=== PATIENT | male | born 1955 ===

== ENCOUNTER 2024-12-27 08:34 | Outpatient (REF) | payer MEDICARE, SELFPAY ==
--- OUTSIDE RECORDS SUMMARY | 2024-12-25 14:00 | XMS_ITS | Encounter Summary ---
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 Role Phone Clarke Silveira CNP Primary Care Provider [phone] Reason for Referral * Imaging (Routine) - Authorized Specialty Diagnoses / Procedures Referred By Rudy t Referred To Contact Radiology Diagnoses Sensation of swollen throat Procedures US Head Neck Soft Tissue Clarke Silveira CNP [address] [place] [address] Phone: tel: fax: [facility] [address], [address] [place] [address] Phone: tel: fax: Referral ID Status Reason Start Date Expiration Date V isits Requested Visits Authorized [id number] Authorized 12/26/2024 12/26/2025 1 1 * Consultation (Routine) - Pending Review Specialty Diagnoses / Procedures Referred By Rudy t Referred To Contact Gastroenterology Diagnoses Chronic bilateral low back pain with bilateral sciatica Clarke Silveira CNP [address] [place] [address] Phone: tel: fax: Referral ID Status Reason Start Date Expiration Date Visits Requested Visits Authorized [id number] Pending Review Specialty Services Required 12/25/2024 12/25/2025 1 1 * Consultation (Routine) - Pending Review Specialty Diagnoses / Procedures Referred By Contac t Referred To Contact Podiatry Diagnoses Neuropathy Clarke Silveira CNP [address] [place] [address] Phone: tel: fax: Referral ID Status Reason Start Date Expiration Date Visits Requested Visits Authorized [id number] Pending Review Specialty Services Required 12/25/2024 12/25/2025 1 1 Encounter Details Date Type Department Care Team ([facility] st Contact Info) Description 12/25/2024 2:00 PM EDT Office Visit [facility] [address] [place] [address] Clarke Silveira CNP [address] [place] [address] Encounter for physical examination (Primary Dx); Neuropathy; Type 2 diabetes mellitus with other specified complication, without long-term current use of insulin (HCC); Chronic neck pain; Chronic bilateral low back pain with bilateral sciatica; Encounter for immunization; Primary hypertension; Sensation of swollen throat; Hypothyroidism, unspecified type Social History Tobacco Use Types Packs/Day Years Used Date Smoking Tobacco: Former Cigarettes Passive Smoke Exposure: Never Smokeless Tobacco: Never Alcohol Use Standard Drinks/Week Comments Not Currently 0 (1 standard drink = 0.6 oz pur e alcohol) Depression Answer Date Recorded Patient Health Questionnaire-9 Score 9 12/25/2024 Patient Health Questionnaire-9 Score 9 12/25/2024 Last PHQ-9: Questionnaire Data Not on file 1 Housing Stability Answer Date Recorded What is your housing situation today? I have holli perea 12/18/[address] you li ve. Do you have problems with any of the following? None of the above 12/18/2024 Food Insecurity Answer Date Recorded Within the past 12 months, y ou worried that your food would run out before you got money to buy more: Never True 12/18/2024 Within the past 12 months,th e food you bought just didn't last and you didn't have enough money to get more: Never True Transportation Answer Date Recorded In the past 12 months, has l ack of transportation kept you from medical appts, meetings, work or from getting things needed for daily living? No 12/18/2024 Utilities Answer Date Recorded In the past 12 months, has t he electric, gas, oil or water company threatened to shut off services in your home? No 12/18/2024 Depression Answer Date Recorded Patient Health Questionnaire-2 Score 2 12/25/2024 Internet Access Answer Date Recorded Internet Access Q1 Yes 12/18/2024 Internet Access Q2 Not on file 12/18/2024 Sex and Gender Information Value Date Recorded Sex Assigned at Male 12/25/2024 2:06 PM EDT Legal Sex Male 10:10 AM EDT Gender Identity Male 12/25/2024 2:06 PM EDT Sexual Orientation Straight 12/25/2024 2: 06 PM EDT documented as of this encounter Last Filed Vital Signs Vital Sign Reading Time Taken Comments Blood Pressure 158/88 12/25/2024 2:23 PM EDT Pulse 76 12/25/2024 2:23 PM EDT Temperature 36.6 C (97.9 F) 12/25/2024 2:23 PM EDT Respiratory Rate 12 12/25/2024 2:23 PM EDT Oxygen Saturation 97% 12/25/2024 2:23 PM EDT Inhaled Oxygen Concentration - - Weight 89.4 kg (197 lb) 12/25/2024 2:23 PM EDT Height 169.5 cm (5' 6.75 ) 12/25/2024 2:23 PM ED T Body Mass Index 31.09 12/25/2024 2:23 PM EDT documented in this encounter Functional Status * Over the past 2 weeks, how often have you been bothered by any of the following problems? Question Answer Date of Assessment Author Patient Health Questionnaire -2 Score 2 12/25/2024 2:58 PM EDT Anna Ramirez MA * Little interest or pleasure in doing things Answer Date of Assessment Author Several days 12/25/2024 2:58 PM EDT Regine Ramirez MA * Feeling down, depressed, or hopeless Answer Date of Assessment Author Several days 12/25/2024 2:58 PM EDT Regine Ramirez MA * Trouble falling or staying asleep, or sleeping too much Answer Date of Assessment Author More than half the days 12/25/2024 2:58 PM EDT Regine Omalley MA * Feeling tired or having little energy Answer Date of Assessment Author Nearly every day 12/25/2024 2:58 PM EDT Regine Hernandez MA * Poor appetite or overeating Answer Date of Assessment Author Not at all 12/25/2024 2:58 PM EDT Regine Ramirez MA * Feeling bad about yourself - or that you are a failure or have let yourself or your family down Answer Date of Assessment Author Not at all 12/25/2024 2:58 PM EDT Regine Ramirez MA * Trouble concentrating on things, such as reading the newspaper or watching television Answer Date of Assessment Author Several days 12/25/2024 2:58 PM EDT Regine Ramirez MA * Moving or speaking so slowly that other people could have noticed? Or the opposite - being so fidgety or restless that you have been moving around a lot more than usual. Answer Date of Assessment Author Several days 12/25/2024 2:58 PM EDT Regine Ramirez MA * Thoughts that you would be better off or hurting yourself in some way Answer Date of Assessment Author Not at all 12/25/2024 2:58 PM EDT Regine Ramirez MA * Patient Health Questionnaire-9 Score Answer Date of Assessment Author 9 12/25/2024 2:58 PM EDT Regine Ramirez MA * How difficult have these problems made it for you to do your work, take care of things at home, or get along with other people? Answer Date of Assessment Author Somewhat difficult 12/25/2024 2:58 PM EDT Regine Schmid MA documented as of this encounter Progress Notes * Clarke Silveira CNP - 12/25/2024 2:00 PM EDT Subjective: Anastacio Quiles is a 69 y.o. male with PMH of hypertension, CKD and renal stones, T2DM, Hypothyroidism, Diverticulosis, and depression who presents to the office for a new patient visit. Previous PCP unknown. Interim history: Pt follows with [facility] for CKD. Current concerns: Neuropathy: Reports severe pain in hands, feet, neck, back, and both legs, described as neuropathy and sciatica; pain worsens with walking and daily activity Pt reports history of neck injections forpain relief. Denies taking gabapentin or duloxetine due to unwanted side effects. Pt reports he is not interested in PT as he reports symptoms worsen and no improvement after previous sessions. Chronic back pain with sciatica, Elevated BP: pt currently takes metoprolol, declines taking losartan due to side effects, denies taking hydrochlorothiazide. Reporting sensation of throat obstruction and inability to clear throat for past 1.5 months; occasional trouble breathing during this period. He reports suspected cold or infection, but symptoms havepersisted. Health maintenance - Last diabetic foot exam performed 6-7 months ago; no recent follow-up due to insurance changes. - Last colon cancer screening in 2019 unsure of results - Upcoming routine eye exam scheduled for December 24, 2024. Problem List[1] Surgical History[2] Family History[3] Mental health: Patient Health Questionnaire-9 Score: 9 (12/25/2024 2:58 PM) Patient Health Questionnaire-2 Score: 2 (12/25/2024 2:58 PM) Thoughts that you would be better off or hurting yourself in some way: Not at all (12/25/2024 2:58 PM) Allergies[4] Review of Systems Vitals: 12/25/24 1423 BP: (!) 158/88 BP Location: Left arm Patient Position: Sitting BP Cuff Size: Adult Pulse: 76 Resp: 12 Temp: 97.9 ??F (36.6 ??C) TempSrc: Oral SpO2: 97% Weight: 197 lb (89.4 kg) Height: 5' 6.75 (1.695 m) Physical Exam Vitals reviewed. Constitutional: General: He is not in acute distress. Appearance: Normal appearance. He is not ill-appearing, toxic-appearing or diaphoretic. HENT: Head: Normocephalic and atraumatic. Mouth/Throat: Mouth: Mucous membranes are moist. Pharynx: Oropharynx is clear. No oropharyngeal exudate or posterior oropharyngeal erythema. Eyes: Extraocular Movements: Extraocular movements intact. Pupils: Pupils are equal, round, and reactive to light. Cardiovascular: Rate and Rhythm: Normal rate and regular rhythm. Pulses: Normal pulses. Heart sounds: Normal heart sounds. No murmur heard. No friction rub. No gallop. Pulmonary: Effort: Pulmonary effort is normal. No respiratory distress. Breath sounds: Normal breath sounds. No stridor. No wheezing, rhonchi or rales. Chest: Chest wall: No tenderness. Musculoskeletal: Cervical back: Neck supple. No tenderness. Right lower leg: No edema. Left lower leg: No edema. Lymphadenopathy: Cervical: No cervical adenopathy. Neurological: General: No focal deficit present. Mental Status: He is alert and oriented to person, place, and time. Mental status is at baseline. Psychiatric: Mood and Affect: Mood normal. Behavior: Behavior normal. Thought Content: Thought content normal. Judgment: Judgment normal. Assessment & Plan Encounter for physical examination 1. Anticipatory guidance discussed. Specific topics reviewed: drugs, ETOH, and tobacco, importance of regular dental care, importance of regular exercise, importance of varied diet, minimize junk food, and sex; STD and prevention as appropriate. 2. Age appropriate screenings discussed Orders: Lipid Panel, Standard; Future Albumin, Random Urine W/Creatinine; Future TSH W/Reflex to FT4; Future CBC auto differential; Future Comprehensive Metabolic Panel; Future Hepatitis C Antibody with Reflex to HCV, RNA, Quantitative, Real-Time PCR; Future Neuropathy - Refer to podiatry for comprehensive foot examination and management of neuropathy symptoms -considered medication for symptoms, however pt reluctant to pharm treatment due to side effects Orders: Referral to Podiatry; Future Type 2 diabetes mellitus with other specified complication, without long-term current use of insulin (HCC) Lab Results Component Value Date HGBA1C 6.7 (A) 12/25/2024 A1c at goal of <7 Maintenance BMP: ordered Microalbumin: ordered Foot Exam: ordered Eye Exam: scheduled Lipid panel: ordered Statin: yes ASA: no RAOUL/ARB: no, 2/2 AE Treatment Goals: A1c goal: <7% FBG goal: <130 2 hour post prandial goal: <180 Advised Low sugar and Low carb diet. Counseled regarding self-monitoring of blood glucose. Counseled re: potential co-morbidities including cardiovascular disease. Counseled re: potential co-morbidities include neuropathy and retinopathy. Counseled re: potential co-morbidities include nephropathy. Future consideration for glipizide discontinuation Orders: POCT A1c POCT glucose manually resulted Chronic neck pain - Prescribed acetaminophen (Tylenol) for pain management, to be taken as needed for symptomatic relief. - Prescribed topical analgesic gel for localized pain relief, to be applied to affected areas as needed. - Recommended consideration of physical therapy in the future if pain remains uncontrolled, despiteprevious negative experiences. Chronic bilateral low back pain with bilateral sciatica - Prescribed acetaminophen (Tylenol) for pain management, to be taken as needed for symptomatic relief. - Prescribed topical analgesic gel for localized pain relief, to be applied to affected areas as needed. - Recommended consideration of physical therapy in the future if pain remains uncontrolled, despiteprevious negative experiences. Orders: Referral to Gastroenterology; Future Encounter for immunization Orders: FLU VACCINE TRIVALENT HIGH DOSE [id number] (Fluzone) 65 yrs + Primary hypertension BP not at goal of <140/90 Plan is to have pt follow up for RN BP check in 2 weeks. If BP >130/ at this visit please add : amlodipine 5mg daily. Medication: Continue current antihypertensives: metoprolol Start/change dosage of: if still uncontrolled start amlodipine 5mg Monitor for side effects: dizziness, flushing, palpitations, LE edema Lifestyle Modifications: Low sodium DASH diet Regular aerobic exercise (>=150 min/week) Weight loss if BMI >25 Limit alcohol, avoid tobacco Follow-up: Recheck BP in office/home in ___2___ weeks Patient Education: Provided verbal/written education on BP goals and home monitoring Emphasized adherence to medication and follow-up Sensation of swollen throat Physical exam was benign, no foreign body observed on PE No cervical LAD Plan to order soft tissue US of throat Orders: US Head Neck Soft Tissue; Future Hypothyroidism, unspecified type Pt asymptomatic Pt adherent to medication Will obtain updated thyroid panel to monitor condition Current Medications[5] Immunization History Administered Date(s) Administered Influenza High-dose Quadrivalent Preservative Free 02/21/2022 Influenza Injectable Quadrivalant Preservative Free IIV4 MDCK 12/19/2019 Influenza Quadrivalent Adjuvanted 02/01/2023 Influenza, High Dose Seasonal, Preservative Free 12/31/2014, 11/10/2015, 12/25/2024 Influenza, IIV3, injectable 12/28/2009, 12/22/2010, 01/16/2012, 02/04/2013, 01/29/2016, 02/06/2017,02/12/2018, 12/19/2019, 02/24/2021, 02/21/2022 Influenza, seasonal, injectable, preservative free 02/24/2021 Pfizer Covid-19 Vaccine 12+ 03/17/2021 Pfizer Covid-19 Vaccine 12+ Bivalent 03/04/2022 Pneumococcal Polysaccharide PPSV23 01/26/2011 RSV Adjuvant 02/01/2023 Td (adult), unspecified 11/25/2010, 10/01/2021 Tdap 12/26/2018 Appointment Follow up in about 2 weeks (around 01/08/2025) for RN BP check then f/u with me in 3 months . 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 [3] No family history on file. [4] Allergies Allergen Reactions Aspirin Gabapentin Abdominal Pain GI Upset Lisinopril Angioedema and Swelling [5] Current Outpatient Medications Medication Sig Dispense Refill atorvastatin (Lipitor) 10 MG tablet Take 1 tablet by mouth Once per day. cetirizine (ZyrTEC) 10 MG tablet Take 10 mg by mouth. FreeStyle lancets TEST 2 TIMES DAILY DIRECTED FOR DIABETES TYPE 2 FREESTYLE LITE test strip USE DIRECTED TO TEST BLOOD SUGAR TWICE DAILY FOR TYPE 2 DAIBETES glucose blood test strip FREESTYLE LITE TEST STRIP, See Instructions, # 200 Unknown, 3 Refills, Maintenance, USE DIRECTED TO CHECK BLOOD SUGAR DOS VECES AL RAE. ICD-10: E11.9, 06/22/22 1:52:00 PM EDT, 168, cm, 03/04/22 14:21:00 EST, Height, 92.45, kg, 03/04/22 14:21:00 EST, Dry Weight Isopropyl Alcohol (Alcohol Wipes) 70 % misc See Instructions, # 1 box, Refills 3, Tot. Refills 3, Maintenance, Use as directed, DX: Type 2 DM, E11.9, 04/15/15 4:12:00 PM EST, Compound Januvia 50 MG tablet Take 50 mg by mouth Once per day. metFORMIN (Glucophage) 1000 MG tablet Take 1 tablet by mouth Once per day. acetaminophen (Tylenol Extra Strength) 500 MG tablet Take 1 tablet (500 mg) by mouth every 6 (six) hours if needed for mild pain or moderate pain for up to 10 days. 30 tablet 0 cholecalciferol VITAMIN D (Vitamin D-3) 50 MCG (2000 UT) tablet TOME 1 TABLETA POR V A ORAL TODOS LOS D Diclofenac Sodium 1 % gel Apply to affected areas daily for pain relief. 100 g 0 glipiZIDE XL (Glucotrol XL) 2.5 MG 24 hr tablet Take 1 tablet by mouth Once per day. levothyroxine (Synthroid, Levoxyl) 175 MCG tablet TOME ZOILA TABLETA POR V A ORAL TODOS LOS D ON EMPTY STOMACH metoprolol succinate XL (Toprol-XL) 50 MG 24 hr tablet TOME 1 TABLETA POR V A ORAL TODOS LOS D No current facility-administered medications for this visit. documented in this encounter Miscellaneous Notes * Assessment & Plan Note - Clarke Silveira CNP - 12/25/2024 2:00 PM EDT Associated Problem(s): Type 2 diabetes mellitus (HCC) Lab Results Component Value Date HGBA1C 6.7 (A) 12/25/2024 A1c at goal of <7 Maintenance BMP: ordered Microalbumin: ordered Foot Exam: ordered Eye Exam: scheduled Lipid panel: ordered Statin: yes ASA: no RAOUL/ARB: no, 2/2 AE Treatment Goals: A1c goal: <7% FBG goal: <130 2 hour post prandial goal: <180 Advised Low sugar and Low carb diet. Counseled regarding self-monitoring of blood glucose. Counseled re: potential co-morbidities including cardiovascular disease. Counseled re: potential co-morbidities include neuropathy and retinopathy. Counseled re: potential co-morbidities include nephropathy. Future consideration for glipizide discontinuation Orders: POCT A1c POCT glucose manually resulted * Assessment & Plan Note - Clarke Silveira CNP - 12/25/2024 2:00 PM EDT Associated Problem(s): Chronic neck pain - Prescribed acetaminophen (Tylenol) for pain management, to be taken as needed for symptomatic relief. - Prescribed topical analgesic gel for localized pain relief, to be applied to affected areas as needed. - Recommended consideration of physical therapy in the future if pain remains uncontrolled, despiteprevious negative experiences. * Assessment & Plan Note - Clarke Silveira CNP - 12/25/2024 2:00 PM EDT Associated Problem(s): Hypertension BP not at goal of <140/90 Plan is to have pt follow up for RN BP check in 2 weeks. If BP >130/ at this visit please add : amlodipine 5mg daily. Medication: Continue current antihypertensives: metoprolol Start/change dosage of: if still uncontrolled start amlodipine 5mg Monitor for side effects: dizziness, flushing, palpitations, LE edema Lifestyle Modifications: Low sodium DASH diet Regular aerobic exercise (>=150 min/week) Weight loss if BMI >25 Limit alcohol, avoid tobacco Follow-up: Recheck BP in office/home in ___2___ weeks Patient Education: Provided verbal/written education on BP goals and home monitoring Emphasized adherence to medication and follow-up * Assessment & Plan Note - Clarke Silveira CNP - 12/25/2024 2:00 PM EDT Associated Problem(s): Hypothyroidism Pt asymptomatic Pt adherent to medication Will obtain updated thyroid panel to monitor condition documented in this encounter Plan of Treatment Upcoming Encounters Date Type Department Care Team (Late st Contact Info) Description 01/08/2025 2:00 PM EDT Clinical Support [facility] [address] [place] [id number] Scheduled Orders Name Type Priority Associated Diagnoses Orde r Schedule Lipid Panel, Standard Lab Routine Encounter for physical examination Expected: 12/25/2024 (Approximate), Expires: 12/25/2025 Albumin, Random Urine W/Creatinine Lab Routine Encounter for physical examination Expected: 12/25/2024 (Approximate), Expires: 12/25/2025 TSH W/Reflex to FT4 Lab Routine Encounter for physical examination Expected: 12/25/2024 (Approximate), Expires: 12/25/2025 CBC auto differential Lab Routine Encounter for physical examination Expected: 12/25/2024 (Approximate), Expires: 12/25/2025 Comprehensive Metabolic Panel Lab Routine Encounter for physical examination Expected: 12/25/2024 (Approximate), Expires: 12/25/2025 Hepatitis C Antibody with Reflex to HCV, RNA, Quantitative, Real-Time PCR Lab Routine Encounter for physical examination Expected: 12/25/2024, Expires: 12/25/2025 US Head Neck Soft Tissue Imaging Routine Sensation of swollen throat Expected: 12/26/2024, Expires: 12/26/2025 Scheduled Referrals Name Type Priority Associated Diagnoses Order Schedule Referral to Podiatry Outpatient Referral Routine Neuropathy Expected: 12/25/2024 (Approximate), Expires: 12/25/2025 Referral to Gastroenterology Outpatient Referral Routine Chronic bilateral low back pain with bilateral sciatica Expected: 12/25/2024 (Approximate), Expires: 12/25/2025 documented as of this encounter Procedures Procedure Name Priority Date/Time Associated Diagnosis Comments POCT GLUCOSE Routine 12/25/2024 3:00 PM EDT Type 2 diabetes mellitus with other specified complication, without long-term current use of insulin (HCC) POCT GLYCATED HEMOGLOBIN, TOTAL Routine 12/25/2024 2:59 PM EDT Type 2 diabetes mellitus with other specified complication, without long-term current use of insulin (HCC) documented in this encounter Results * POCT glucose manually resulted (12/25/2024 3:00 PM EDT) Glucose Blood, POC 151 60 - 200 mg/dL QC Media Lot # Comment:[id number] Lot# Expiration Date Comment:03/15/2025 Blood Capillary blood specimen / Unknown 12/25/2024 3:00 PM EDT [facility] POINT OF CARE TEST ENTER/ EDIT ORDERABLES Final Result * (ABNORMAL) POCT A1c (12/25/2024 2:59 PM EDT) Hemoglobin A1C 6.7(A) 4.0 - 5.7 % [employer] Media Lot # Comment:[id number] Lot# Expiration Date Comment:07/01/2026 Blood 12/25/2024 2:59 PM EDT [facility] POINT OF CARE TEST ENTER/ EDIT ORDERABLES Final Result documented in this encounter Visit Diagnoses Diagnosis Encounter for physical examination- Primary Neuropathy Mononeuritis of unspecified site Type 2 diabetes mellitus with other specified complication, without long-term current use of insulin (HCC) Chronic neck pain Cervicalgia Chronic bilateral low back pain with bilateral sciatica Encounter for immunization Primary hypertension Unspecified essential hypertension Sensation of swollen throat Hypothyroidism, unspecified type documented in this encounter Additional Health Concerns Assessment Noted Time PHQ-9 Depression Total Score: 9 12/26/19 2:58 PM EDT documented as of this encounter 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
--- OUTSIDE RECORDS SUMMARY | 2024-12-27 08:57 | XMS_ITS | Encounter Summary ---
Author Organization [employer] Address [address] [facility] 7[address] [place] [address] Care Team Providers Care Milk Tester Name Role Phone Clarke Silveira CNP Primary Care Provider [phone] Reason for Visit * Reason Onset Date Comments chart prep 12/25/2024 Encounter Details Date Type Department Care Team ([facility] st Contact Info) Description 12/25/2024 Telephone [facility] MED & PEDS [address] [place] [address] LatashaJasbirTemple, [place] chart prep Social History Tobacco Use Types Packs/Day Years Used Date Smoking Tobacco: Former Cigarettes Passive Smoke Exposure: Never Depression Answer Date Recorded Patient Health Questionnaire-9 Score 9 12/25/2024 Patient Health Questionnaire-9 Score 9 12/25/2024 Last PHQ-9: Questionnaire Data Not on file 1 Housing Stability Answer Date Recorded What is your housing situation today? I have hollipreethi perea 12/18/[address] you [...] t he electric, gas, oil or water [employer] threatened to shut off services in your [...] PM EDT documented as of this encounter Miscellaneous Notes * Telephone Encounter - Richelle Mack MA - 12/25/2024 8:36 AM EDT Chart Prep Labs: not applicable Images: not applicable Referrals: not applicable Vaccines due: Covid, Flu, PCV20, and Zoster Screenings: colonoscopy Overdue care gaps: A1c, Glucose, SBIRT, PHQ-9, and Tobacco documented in this encounter Plan of Treatment Upcoming Encounters Date Type Department Care Team (Late st Contact Info) Description 01/08/2025 2:00 PM EDT Clinical Support [facility] MED & PEDS [address] [place] [address] documented as of this encounter Visit Diagnoses Not on filedocumented in this encounter Additional Health Concerns Assessment Noted Time PHQ-9 Depression Total Score: 9 12/26/19 2:58 PM EDT documented as of this encounter Care Teams Milk Tester Relationship Specialty Start Date End Date Clarke Silveira CNP [address] [place] [address] PCP - General Family Medicine 12/25/24 documented as of this encounter
--- OUTSIDE RECORDS SUMMARY | 2024-12-27 08:57 | XMS_ITS | Clinical Summary ---
Author Organization [employer] Address [address] [facility] 7t [place] [address] Care Team Providers Care Radiation Oncology Therapist Name Role Phone Clarke Silveira CNP Primary Care Provider [phone] Allergies Active Allergy Reactions Criticality Noted Date Comments Aspirin 09/04/2020 Gabapentin Abdominal Pain 12/25/2024 GI Upset Lisinopril Angioedema,Swelling 12/16/2021 Medications glipiZIDE XL (Glucotrol XL) 2.5 MG 24 hr tablet Take 1 tablet by mouth Once per day. Active FREESTYLE LITE test strip USE DIRECTED TO TEST BLOOD SUGAR TWICE DAILY FOR TYPE 2 DAIBETES 5 Active FreeStyle lancets TEST 2 TIMES DAILY DIRECTED FOR DIABETES TYPE 2 5 Active levothyroxine (Synthroid, Levoxyl) 175 MCG tablet TOME ZOILA TABLETA POR V A ORAL TODOS LOS D ON EMPTY STOMACH Active metFORMIN (Glucophage) 1000 MG tablet Take 1 tablet by mouth Once per day. 4 Active metoprolol succinate XL (Toprol-XL) 50 MG 24 hr tablet TOME 1 TABLETA POR V A ORAL TODOS LOS D Active Januvia 50 MG tablet Take 50 mg by mouth Once per day. 5 Active cholecalciferol VITAMIN D (Vitamin D-3) 50 MCG (1999 UT) tablet TOME 1 TABLETA POR V A ORAL TODOS LOS D Active atorvastatin (Lipitor) 10 MG tablet Take 1 tablet by mouth Once per day. 4 Active glucose blood test strip FREESTYLE LITE TEST STRIP, See Instructions, # 200 Unknown, 3 Refills, Maintenance, USE DIRECTED TO CHECK BLOOD SUGAR DOS VECES AL RAE. ICD-10: E11.9, 06/22/22 1:52:00 PM EDT, 168, cm, 03/04/22 14:21:00 EST, Height, 92.45, kg, 03/04/22 14:21:00 EST, Dry Weight 2 Active cetirizine (ZyrTEC) 10 MG tablet Take 10 mg by mouth. 4 Active Isopropyl Alcohol (Alcohol Wipes) 70 % misc See Instructions, # 1 box, Refills 3, Tot. Refills 3, Maintenance, Use as directed, DX: Type 2 DM, E11.9, 04/15/15 4:12:00 PM EST, Compound 6 Active acetaminophen (Tylenol Extra Strength) 500 MG tablet Take 1 tablet (500 mg) by mouth every 6 (six) hours if needed for mild pain or moderate pain for up to 10 days. 30 tablet 5 01/05/20 25 Active Diclofenac Sodium 1 % gel Apply to affected areas daily for pain relief. 100 g 5 Active DULoxetine (Cymbalta) [address] capsule Take 1 capsule by mouth Once per day. 5 12/27/19 25 Discontinu ed(Side effects) hydroCHLOROthia zide (HYDRODiuril) 25 MG tablet Take 25 mg by mouth Once per day. 4 12/27/19 25 Discontinu ed(Side effects) losartan (Cozaar) 25 MG tablet Take 1 tablet by mouth Once per day. 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 - Prescribed topical analgesic gel for localized pain relief, to be applied to affected areas as needed. - Recommended consideration of physical therapy in the future if pain remains uncontrolled, despite previous negative experiences. Class 1 obesity 12/16/2021 Depressive disorder 12/16/2021 Fracture of lower limb 12/16/2021 Overview (12/25/2024): Orthopedic Surgery Dr Quick in [place] Hypertension 12/16/2021 Assessment & Plan (12/26/2024 10:38 AM EDT): BP not at goal of <140/90 Plan [...] monitoring Emphasized adherence to medication and follow-up Hypothyroidism 12/16/2021 Assessment & Plan (12/26/2024 10:38 AM EDT): Pt asymptomatic Pt adherent to medication Will obtain updated thyroid panel to monitor condition jaundice, unspecified 12/16/2021 Pain of left lower leg 12/16/2021 Sensorineural hearing loss 12/16/2021 Overview (12/25/2024): bilateral Renal stone 09/04/2020 Chronic kidney disease, stage 2 (mild) 1 Diabetes mellitus 12/24/2010 Type 2 diabetes mellitus 12/24/2010 Assessment & Plan (12/26/2024 10:38 AM EDT): Lab Results Component Value Date HGBA1C 6.7 [...] Orders: POCT A1c POCT glucose manually resulted Diverticular disease of colon 09/24/2009 Overview (12/25/2024): [place] Diverticulosis of colon 09/24/2009 Overview (12/25/2024): [place] Internal hemorrhoids 09/24/2009 Overview (12/25/2024): [place] Encounters Date Type Department Care Team Description 12/25/2024 2:00 PM EDT Office Visit [facility] CHC MED & PEDS [address] [place] [address] Clarke Silveira CNP Encounter for physical examination (Primary Dx); Neuropathy; Type 2 diabetes mellitus with other specified complication, without long-term current use of insulin (HCC); Chronic neck pain; Chronic bilateral low back pain with bilateral sciatica; Encounter for immunization; Primary hypertension; Sensation of swollen throat; Hypothyroidism, unspecified type 12/25/2024 Telephone [facility] MEDICINE [address] [place] [address] Clarke Silveira, WALKING DRAGLINE OILER insurance 12/25/2024 Travel 12/25/2024 Telephone [facility] CHC MED & PEDS [address] [place] [address] Richelle Mack MA chart prep 12/18/2024 Patient Outreach [facility] MEDICINE [address] [place] [address] Kamron Fried MD Pre-visit Planning (SDOH screening negative and Tobacco screening negative) 11/15/2024 Telephone [facility] MEDICINE [address] [place] [address] Kamron Fried MD New Patient from Last 3 Months Immunizations Immunization Administration Dates Next Due Influenza High-dose Quadriva lent Preservative Free 02/21/2022 Influenza Injectable Quadriv alant Preservative Free IIV4 MDCK 12/19/2019 Influenza Quadrivalent Adjuvanted 02/01/2023 Influenza, High Dose Seasona l, Preservative Free 12/25/2024,11/10/2015,12/31/2014 Influenza, IIV3, injectable 02/21/2022,1 04/27/2020,12/19/2019,02/12,02/06/2017,01/29/2016,02/04/2013 ,01/16/2012,12/22/2010,12/28/2009 Influenza, seasonal, injecta ble, preservative free 02/24/2021 Pfizer Covid-19 Vaccine 12+ Bivalent 03/04/2022 Pneumococcal Polysaccharide PPSV23 01/26/2011 RSV Adjuvant 02/01/2023 Td (adult), unspecified 10/01/2021,11/25/2010 Tdap 12/26/2018 Social History Tobacco Use Types Packs/Day Years [...] your housing situation today? I have holli sing 12/18/[address] you li [...] Orientation Straight 12/25/2024 2: 06 PM EDT Last Filed Vital Signs Vital Sign Reading [...] Mass Index 31.09 12/25/2024 2:23 PM EDT Plan of Treatment Upcoming Encounters Date Type Department Care Team (Late st Contact Info) Description 01/08/2025 2:00 PM EDT Clinical Support [facility] MED & PEDS [address] [place] [address] Health Maintenance Due Date Last Done Comments CT Colonography 1955 Colonoscopy 1955 Colorectal Cancer Screening 1955 FIT DNA/Cologuard 1955 FIT 1955 FOBT 1955 Lipid Panel 1955 Sigmoidoscopy 1956 Diabetes: Foot Exam 1966 Eye Exam 1966 Hepatitis C Screening 1974 Zoster Vaccines (1 of 2) 2006 Pneumococcal Vaccine: 50+ Years (2 of 2 - PCV) 01/27/2012 01/26/2011 COVID-19 Vaccine ( season) 2024 03/04/2022, 03/17/2021 Depression Monitoring 06/25/2025 12/25/2024, 025 Diabetes: Hemoglobin A1C 06/25/2025 12/25/2024 SDOH Screening 12/18/2025 12/18/2024 Alcohol/Substance Use Screening 12/25/2025 12/25/2024 Tobacco Screening 12/26/2025 12/26/2024 DTaP/Tdap/Td Vaccines (3 - Td or Tdap) 10/02/2031 10/01/2021, 12/26/2018, 11/25/2010 RSV Patients and Patients Aged 60 years or older Completed 02/01/2023 Influenza Vaccine Completed 12/25/2024, , 02/21/2022, Additional history exists HIB Vaccines Aged Out No longer eligi ble based on patient's age to complete this topic HPV Vaccines Aged Out No longer eligi ble based on patient's age to complete this topic Hepatitis A Vaccines Aged Out No long er eligible based on patient's age to complete this topic Hepatitis B Vaccines Aged Out No long er eligible based on patient's age to complete this topic IPV Vaccines Aged Out No longer eligi ble based on patient's age to complete this topic Meningococcal B Vaccine Aged Out No l onger eligible based on patient's age to complete this topic Meningococcal Vaccine Aged Out No sveta stacia eligible based on patient's age to complete this topic RSV under 20 months Aged Out No longe r eligible based on patient's age to complete this topic Rotavirus Vaccines Aged Out No longer eligible based on patient's age to complete this topic Procedures Procedure Name Priority Date/Time Associated Diagnosis Comments POCT GLUCOSE Routine 12/25/2024 3:00 PM EDT Type 2 diabetes mellitus with other specified complication, without long-term current use of insulin (HCC) POCT GLYCATED HEMOGLOBIN, TOTAL Routine 12/25/2024 2:59 PM EDT Type 2 diabetes mellitus with other specified complication, without long-term current use of insulin (HCC) from Last 3 Months Results * POCT glucose manually resulted (12/25/2024 3:00 PM EDT) Glucose Blood, POC 151 60 - 200 mg/dL QC Media Lot # Comment:[id number] Lot# Expiration Date Comment:03/15/2025 Blood Capillary blood specimen / Unknown 12/25/2024 3:00 PM EDT [facility]IL[facility] POINT OF CARE TEST ENTER/ EDIT ORDERABLES Final Result * (ABNORMAL) POCT A1c (12/25/2024 2:59 PM EDT) Pathologist [facility] Hemoglobin A1C 6.7(A) 4.0 - 5.7 % QC Media Lot # Comment:[id number] Lot# Expiration Date Comment:07/01/2026 Blood 12/25/2024 2:59 PM EDT [facility]ILER POINT OF CARE TEST ENTER/ EDIT ORDERABLES Final Result from Last 3 Months Insurance [facility] MEDICARE ADVANTAGE Care Teams Radiation Oncology Therapist Relationship Specialty Start Date End Date Clarke Silveira CNP [address] [place] [address] PCP - General Family Medicine 12/25/24
--- OUTSIDE RECORDS SUMMARY | 2024-12-27 08:57 | XMS_ITS | Clinical Summary ---
Author Organization [facility] Address [address] [facility] [address] [place] [address] Phone Care Team Providers Care Brick Tosser Name Role Phone Unavailable Primary Care Provider Unavailabl e Allergies Active Allergy Reactions Criticality Noted Date Comments Aspirin 09/04/2020 Lisinopril Swelling 12/16/2021 Medications atorvastatin (LIPITOR) 10 MG tablet Take 1 tablet by mouth 1 (one) time each day 09/16/2013 Active DULoxetine (CYMBALTA) [address] capsule Take 1 capsule by mouth 1 (one) time each day 04/09/2014 Active glipiZIDE (GLUCOTROL XL) 2.5 MG 24 hr tablet Take 1 tablet by mouth 1 (one) time each day Active levothyroxine (SYNTHROID, LEVOTHROID) 150 MCG tablet Take 1 tablet by mouth 1 (one) time each day 05/06/2014 Active losartan (COZAAR) 25 MG tablet Take 1 tablet by mouth 1 (one) time each day Active metFORMIN (GLUCOPHAGE) 1000 MG tablet Take 1 tablet by mouth 1 (one) time each day 03/18/2014 Active metoprolol succinate XL (TOPROL-XL) 50 MG 24 hr tablet Take 1 mg by mouth 1 (one) time each day 02/10/2014 Active hydroCHLOROthia zide 25 MG tabletIndicatio ns:Renal stone,Hypertens ion Take 1 tablet (25 mg total) by mouth 1 (one) time each day 90 tablet 3 12/19/2023 Active Januvia 50 MG tablet Take 50 mg by mouth 1 (one) time each day Active Cholecalciferol (Vitamin D3) 50 MCG (2000 UT) tabletIndicatio ns:Vitamin D deficiency, not otherwise specified Take 2,000 Units by mouth 1 (one) time each day 30 tablet 11 09/02/2024 Active Active Problems Problem Noted Date Diagnosed Date Hypercalcemia 02/21/2024 Benign prostatic hyperplasia 12/16/2021 Bilateral cataracts 12/16/2021 Bilirubin level - finding 12/16/2021 Chronic neck pain 12/16/2021 Hypertension 12/16/2021 Fracture of lower limb 12/16/2021 Overview (12/16/2021): Orthopedic Surgery Dr Quick in [place] Hypothyroidism 12/16/2021 Obese class I 12/16/2021 Pain of left lower leg 12/16/2021 Patient care statuses 12/16/2021 Sensorineural hearing loss 12/16/2021 Overview (12/16/2021): bilateral Depressive disorder 12/16/2021 Chronic kidney disease, stage 2 (mild) Renal stone 09/04/2020 Type 2 diabetes mellitus, not otherwise specifie d 12/24/2010 Diverticular disease of colon 09/24/2009 Overview (12/16/2021): seen on colonoscopy in [place] Internal hemorrhoids 09/24/2009 Overview (12/16/2021): seen on colonoscopy in [place] Immunizations Immunization Administration Dates Next Due Influenza Split High Dose Preservative Free IM 0 11/10/2015,12/31/2014 Pfizer SARS-COV-2 03/17/2021 Pneumococcal Polysaccharide 01/26/2011 Td, Unspecified 10/01/2021,11/25/2010 Tdap 12/26/2018 Family History Medical History Relation Comments Diabetes Father Heart disease Father Hypertension Father Kidney disease Father Diabetes Mother Diabetes Sibling Relation Status Comments Father Mother Alive Sibling Social History Tobacco Use Types Packs/Day Years Used Date Smoking Tobacco: Never Smokeless Tobacco: Never Tobacco Cessation:Counseling Given: Not Answered Alcohol Use Standard Drinks/Week Comments Not Currently 0 (1 standard drink = 0.6 oz pure alcohol) Alcoholic Drinks/day: Occasional social drink Sex and Gender Information Value Date Recorded Sex Assigned at Not on file Legal Sex Male 5:22 PM EST Gender Identity Not on file Sexual Orientation Not on file Last Filed Vital Signs Vital Sign Reading Time Taken Comments Blood Pressure 120/80 08/20/2024 10:50 AM EDT Pulse 70 08/20/2024 10:50 AM EDT Temperature - - Respiratory Rate - - Oxygen Saturation 99% 02/21/2024 11:18 AM EST Inhaled Oxygen Concentration - - Weight 91.7 kg (202 lb 3.2 oz) 08/20/2024 10:50 AM EDT Height 167.6 cm (5' 6 ) 03/06/2020 12:00 PM EST Body Mass Index 32.64 03/06/2020 12:00 PM EST Plan of Treatment Upcoming Encounters Date Type Department Care Team (Late st Contact Info) Description 01/25/2025 Orders Only [facility] [address] [phone] Marjan Hernandez ARNP [address] [address] Chronic kidney disease, stage 2 (mild); Hypertension; Hypercalcemia; Type 2 diabetes mellitus, not otherwise specified (HCC) 02/18/2025 11:00 AM EST Office Visit [facility] [address] [phone] Marjan Hernandez ARNP [address] [address] Health Maintenance Due Date Last Done Comments Colorectal Cancer Screening: Annual FOBT 2005 Colorectal Cancer Screening: Colonoscopy 2005 Colorectal Cancer Screening: Sigmoidoscopy 2005 Pneumococcal Vaccine: 50+ Years (2 of 2 - PCV) 01/27/2012 01/26/2011 Diabetes: Ophthalmology Exam 12/16/2021 Diabetes: Pedal Pulse Checked 12/16/2021 Diabetes: Sensory Foot Exam 12/16/2021 Diabetes: Visual Foot Exam 12/16/2021 Diabetes: Hemoglobin A1C 03/27/2025 12/25/2024, 07/26 Pneumococcal Vaccine: Peds (0 to 5 Years) and At-Risk Patients (6 to 49 Years) Discontinued 01/26/2011 Influenza Vaccine Completed 12/25/2024, , 02/24/2021, Additional history exists Hepatitis B Vaccine Aged Out No longe r eligible based on patient's age to complete this topic Procedures Procedure Name Priority Date/Time Associated Diagnosis Comments HEMOGLOBIN A1C Routine 08/20/2024 12:10 PM EDT Chronic kidney disease, stage 2 (mild) Type 2 diabetes mellitus, not otherwise specified (HCC) from Last 3 Months or Most Recently Relevant to Health Maintenance Results * (ABNORMAL) Hemoglobin A1c (08/20/2024 12:10 PM EDT) Hemoglobin A1C 7.9(H) 4.8 - 5.6 % [facility] Sherice Comment: Prediabetes: 5.7 - 6.4 Diabetes: >6.4 Glycemic control for adults with diabetes: <7.0 Blood Venous blood / Unknown 08/20/2024 12:10 PM EDT 08/20/2024 Marjan VEGASP LAB BLOOD ORDERABLES Final Result [facility] Sherice [address] [place] [address] from Last 3 Months or Most Recently Relevant to Health Maintenance Insurance Medicaid [place] * Guarantor: Anastacio Shen Account Type Relation to Patient Date of Phone Billing Address Personal/Family Self [address] [place] [address] Medicaid [place] UHC Medicare
--- OUTSIDE RECORDS SUMMARY | 2024-12-27 08:57 | XMS_ITS | Encounter Summary ---
Author Organization [employer] Address [address] [facility] [address] [place] [address] Care Team Providers Care Gamer Name Role Phone Raoul Enriquerosa RUEDA Primary Care Provider [phone] Encounter Details Date Type Department Care Team (Latest Contact Info) Description 12/25/2024 Travel Social History Tobacco Use Types Packs/Day Years [...] PM EDT documented as of this encounter Functional Status * Over the [...] Schmid [place] documented as of this encounter Plan of Treatment Upcoming Encounters Date Type Department Care Team ([facility] st Contact Info) Description 01/08/2025 2:00 PM EDT Clinical Support [facility] MED & PEDS [address] [place] [address] documented as of this encounter Visit Diagnoses Not on filedocumented in this encounter Additional Health Concerns Assessment Noted Time PHQ-9 Depression Total Score: 9 12/26/19 2:58 PM EDT documented as of this encounter Care Teams Gamer Relationship Specialty Start Date End Date Clarke Silveira CNP [address] [place] [address] PCP - General Family Medicine 12/25/24 documented as of this encounter
--- OUTSIDE RECORDS SUMMARY | 2024-12-27 08:57 | XMS_ITS | Encounter Summary ---
Author Organization [employer] Address [address] [facility] [address] [place] [address] Care Team Providers Care Pegger Dobby Looms Name Role Phone Clarke Silveira CNP Primary Care Provider [phone] Reason for Visit * Reason Onset Date Comments insurance 12/25/2024 Encounter Details Date Type Department Care Team ([facility] st Contact Info) Description 12/25/2024 Telephone [facility] MEDICINE [address] [place] [address] Clarke Silveira CNP [address] [place] [address] insurance Social History Tobacco Use Types Packs/Day Years [...] Schmid [place] documented as of this encounter Miscellaneous Notes * Telephone Encounter - Destini Gonzalez - 12/25/2024 3:23 PM EDT Patient in for appointment and notified to call ins and change name of pcp. Patient called and com#given [id number] documented in this encounter Plan of Treatment Upcoming Encounters Date Type Department Care Team (Late st Contact Info) Description 01/08/2025 2:00 PM EDT Clinical Support [facility] CHC MED & PEDS [address] [place] [address] documented as of this encounter Visit Diagnoses Not on filedocumented in this encounter Additional Health Concerns Assessment Noted Time PHQ-9 Depression Total Score: 9 12/26/19 2:58 PM EDT documented as of this encounter Care Teams Pegger Dobby Looms Relationship Specialty Start Date End Date Clarke Silveira CNP [address] [place] [address] PCP - General Family Medicine 12/25/24 documented as of this encounter
[2024-12-27 14:13] LABS: MANUAL DIFF FLAG NO
[2024-12-27 14:30] LABS: Hematocrit 44.8 % (42.0-52.0); Hemoglobin 15.1 g/dl (14.0-18.0); Imm Gran Abs Auto 0.02 X10*3/uL (0.00-0.03); Imm Gran Pct Auto 0.2 % (0.0-0.4); Lymphocytes Absolute Auto 2.4 X10*3/uL (1.2-4.9); Mean Corpuscular HGB Conc 33.7 g/dl (31.0-36.0); Mean Corpuscular Hemoglobin 30.0 pg (27.0-33.0); Mean Corpuscular Volume 89.1 fL (80.0-98.0); NRBC Abs Auto 0.000 X10*3/uL (0.0-0.012); NRBC Pct Auto 0.0 /100WBC (0.0-0.2); Platelet Count 229 X10*3/uL (160-400); Red Blood Count 5.03 X10*6/uL (4.60-5.80); White Blood Count 8.5 X10*3/uL (4.8-10.8)
[2024-12-27 15:05] LABS: Alanine Aminotransferase 31 U/L (0-40); Albumin Level 4.7 g/dL (3.5-5.0); Alkaline Phosphatase 89 U/L (39-117); Anion Gap 10 (12-20); Aspartate Amino Transferase 29 U/L (5-37); Blood Urea Nitrogen 16 mg/dL (9-16); Calcium 10.0 mg/dL (8.4-10.2); Carbon Dioxide 30 mmol/L (22-29); Chloride 105 mmol/L (96-108); Cholesterol 134 mg/dL (<200); Estimated Glomerular Filt Rate 59; HDL Cholesterol 40 mg/dL (>40); Potassium 4.5 mmol/L (3.3-5.1); Sodium 140 mmol/L (135-145); Total Protein 7.7 g/dL (6.5-8.0); Triglycerides 114 mg/dL (<150)
[2024-12-27 15:18] LABS: Microalbum/Creatinine Ratio Ur 11.3 ug/mg cr (<30)
[2024-12-28 04:48] LABS: ~HepC Num1 1.18 S/CO (0.00-0.79); ~Hepatitis C Antibody Reactive (Nonreactive)
[2025-01-01 20:08] LABS: HCV Log PCR <1.18 NOT DETECTED Log IU/mL (NOT DETECTED); HepC Viral Load <15 NOT DETECTED IU/mL (NOT DETECTED)
== END 2024-12-27 08:35 | disposition home or self-care (01) ==
LOC: HO.CHCLDS 08:34
DX: Z00.00 Encounter for general adult medical examination without abnormal findings (principal); Z13.6 Encounter for screening for cardiovascular disorders; Z13.29 Encounter for screening for other suspected endocrine disorder
CPT/HCPCS: 36415; 80053; 80061; 82043; 82570; 84443; 85025; 86803; 87522

== ENCOUNTER 2025-01-06 13:11 | Outpatient (REF) | payer MEDICARE, SELFPAY ==
--- NOTE | ~2025-01-06 | US_ITS ---
CLINICAL HISTORY: lump sensation in throat when swallowing US Thyroid Comparison: None provided Findings: The thyroid parenchyma is heterogeneous echotexture. The thyroid gland is normal in size. There are no thyroid nodules. The visualized neck soft tissues are unremarkable. There is no lymphadenopathy. Impression: 1. There are no thyroid nodules. Unremarkable visualized soft tissues of the neck. [employer] TI-RADS Categories TR1 and TR2 nodules do not have follow-up recommendations TR3 (FNA >= 2.5cm, F/U >= 1.5cm at 1, 3, and 5 yrs) TR4 (FNA >= 1.5cm, F/U >= 1cm at 1, 2, 3, and 5 yrs) TR5 (FNA >= 1cm, F/U >= 0.5cm annually for up to 5 yrs) This document has been electronically signed by: Pat Mehta MD on 01/06/2025 13:41:27
--- OUTSIDE RECORDS SUMMARY | 2025-01-06 13:14 | XMS_ITS | Clinical Summary ---
Author Organization [facility] Address [address] [facility] [address] [place] [address] Phone Care Team Providers Care Supervisor Agency Appointments Name Role Phone Unavailable Primary Care Provider [...] Overview (12/16/2021): Orthopedic Surgery Dr Quick in [place] Hypothyroidism 12/16/2021 Obese class I 12/16/2021 Pain of left lower leg 12/16/2021 Patient care statuses 12/16/2021 Sensorineural hearing loss 12/16/2021 Overview (12/16/2021): bilateral Depressive disorder 12/16/2021 Chronic kidney disease, stage 2 (mild) Renal stone 09/04/2020 Type 2 diabetes mellitus, not otherwise specifie d 12/24/2010 Diverticular disease of colon 09/24/2009 Overview (12/16/2021): seen on colonoscopy in [place] Internal hemorrhoids 09/24/2009 Overview (12/16/2021): seen on colonoscopy in [place] Immunizations Immunization Administration Dates Next Due Influenza [...] Orders Only [facility] [address] [phone] Marjan Hernandez ARNP [address] [address] Chronic kidney disease, stage 2 (mild); Hypertension; Hypercalcemia; Type 2 diabetes mellitus, not otherwise specified (HCC) 02/18/2025 11:00 AM EST Office Visit [facility] [address] [phone] Marjan Hernandez ARNP [address] [address] Health Maintenance Due Date Last [...] Hemoglobin A1C 7.9(H) 4.8 - 5.6 % [facility] Sherice Comment: Prediabetes: 5.7 - 6.4 Diabetes: >6.4 Glycemic control for adults with diabetes: <7.0 Blood Venous blood / Unknown 08/20/2024 12:10 PM EDT 08/20/2024 Marjan VEGASP LAB BLOOD ORDERABLES Final Result [facility] [address] [place] [address] from Last 3 Months or Most Recently Relevant to Health Maintenance Insurance Medicaid [place] * Guarantor: Anastacio Shen Account Type Relation to Patient Date of Phone Billing Address Personal/Family Self [address] [place] [address] Medicaid [place] UHC Medicare
--- OUTSIDE RECORDS SUMMARY | 2025-01-06 13:14 | XMS_ITS | Clinical Summary ---
Author Organization [employer] Address [address] [facility] 7t [place] [address] Care Team Providers Care Web Sizer Name Role Phone Clarke Silveira CNP Primary Care Provider [phone] Allergies Active Allergy Reactions Criticality Noted Date [...] by mouth Once per day. 5 Active cholecalcifero l VITAMIN D (Vitamin D-3) 50 MCG (1999) tablet TOME 1 TABLETA POR V A [...] 04/15/15 4:12:00 PM EST, Compound 6 Active Diclofenac Sodium 1 % gel Apply to affected areas daily for pain relief. 100 g 5 Active DULoxetine (Cymbalta) [address] capsule Take 1 capsule by mouth Once per day. 5 12/27/19 25 Discontinue d(Side effects) hydroCHLOROthi azide (HYDRODiuril) 25 MG tablet Take 25 mg by mouth Once per day. 4 12/27/19 25 Discontinue d(Side effects) losartan (Cozaar) 25 MG tablet Take 1 tablet by mouth Once per day. 4 12/27/19 25 Discontinue d(Side effects) acetaminophen (Tylenol Extra Strength) 500 MG tablet Take 1 tablet (500 mg) by mouth every 6 (six) hours if needed for mild pain or moderate pain for up to 10 days. 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 03/2024 Depression 12/25/2024 Allergic rhinitis 12/25/2024 Calculus of kidney 12/25/2024 Fracture of lower extremity 12/25/2024 Overview (12/25/2024): Orthopedic Surgery Dr Quick in [place] Hypercalcemia 02/21/2024 Benign prostatic hyperplasia 12/16/2021 Bilateral [...] Overview (12/25/2024): Orthopedic Surgery Dr Quick in [place] Hypertension 12/16/2021 Assessment & Plan (12/26/2024 10:38 [...] 09/24/2009 Overview (12/25/2024): seen on colonoscopy in CT Diverticulosis of colon 09/24/2009 Overview (12/25/2024): seen on colonoscopy in CT Internal hemorrhoids 09/24/2009 Overview (12/25/2024): seen on colonoscopy in CT seen on colonoscopy in CT Encounters Date Type Department Care Team Description 12/31/2024 Telephone [facility] [address] [place] [address] Clarke Silveira CNP FYI 12/27/2024 Orders Only [facility] MED & PEDS [address] [place] [address] Clarke Silveira CNP 12/25/2024 2:00 PM EDT Office Visit [facility] [address] [place] [address] Clarke Silveira CNP Encounter for physical examination (Primary Dx); Neuropathy; Type 2 diabetes mellitus with other specified complication, without long-term current use of insulin (HCC); Chronic neck pain; Chronic bilateral low back pain with bilateral sciatica; Encounter for immunization; Primary hypertension; Sensation of swollen throat; Hypothyroidism, unspecified type; Encounter for screening for malignant neoplasm of colon 12/25/2024 Telephone [facility] [address] [place] [address] Clarke iSlveira CNP insurance 12/25/2024 Travel 12/25/2024 Telephone [facility] PEDS [address] [place] [address] Richelle Mack ME chart prep 12/18/2024 Patient Outreach [facility] [address] [place] [address] Kamron Fried MD Pre-visit Planning (SDOH screening negative and Tobacco screening negative) 11/15/2024 Telephone [facility] [address] [place] [address] Kamron Fried MD New Patient from Last [...] Description 01/08/2025 2:00 PM EDT Clinical Support [facility] [address] [place] [address] Health Maintenance Due Date Last Done Comments CT Colonography 1955 Colonoscopy 1955 Colorectal Cancer Screening 1955 FIT DNA/Cologuard 1955 FIT 1955 FOBT 1955 Sigmoidoscopy 1956 Diabetes: Foot Exam 1966 Eye Exam 1966 Zoster Vaccines (1 of 2) 2006 Pneumococcal Vaccine: 50+ Years (2 of 2 - PCV) 01/27/2012 01/26/2011 COVID-19 Vaccine ( season) 2024 03/04/2022, 03/17/2021 Depression Monitoring 06/25/2025 12/25/2024, 025 Diabetes: Hemoglobin A1C 06/25/2025 12/25/2024 SDOH Screening 12/18/2025 12/18/2024 Alcohol/Substance Use Screening 12/25/2025 12/25/2024 Tobacco Screening 12/26/2025 12/26/2024 Lipid Panel 12/27/2025 12/27/2024 DTaP/Tdap/Td Vaccines (3 - Td or Tdap) 10/02/2031 10/01/2021, 12/26/2018, 11/25/2010 RSV Patients and Patients Aged 60 years or older Completed 02/01/2023 Influenza Vaccine Completed 12/25/2024, , 02/21/2022, Additional history exists Hepatitis C Screening Completed 12/27/2024, 025 HIB Vaccines Aged Out No longer eligi [...] Procedure Name Priority Date/Time Associated Diagnosis Comments HEPATITIS C VIRAL RNA, QUANTITATIVE, REAL-TIME PCR Routine 12/27/2024 8:39 AM EDT HEPATITIS C AB W/REFL TO HCV RNA, QN, PCR Routine 12/27/2024 8:39 AM EDT Encounter for physical examination COMPREHENSIVE METABOLIC PANEL Routine 12/27/2024 8:39 AM EDT Encounter for physical examination CBC WITH AUTO DIFFERENTIAL Routine 12/27/2024 8:39 AM EDT Encounter for physical examination TSH W/REFLEX TO FT4 Routine 12/27/2024 8 :39 AM EDT Encounter for physical examination ALBUMIN, RANDOM URINE W/CREATININE Routine 12/27/2024 8:39 AM EDT Encounter for physical examination LIPID PANEL, STANDARD Routine 12/27/2024 8:39 AM EDT Encounter for physical examination POCT GLUCOSE Routine 12/25/2024 3:00 PM EDT Type 2 diabetes mellitus with other specified complication, without long-term current use of insulin (HCC) POCT GLYCATED HEMOGLOBIN, TOTAL Routine 12/25/2024 2:59 PM EDT Type 2 diabetes mellitus with other specified complication, without long-term current use of insulin (HCC) from Last 3 Months Results * TSH W/Reflex to FT4 (12/27/2024 8:39 AM EDT) [facility] TSH reflex Free T4 3.60 0.32 - 4.0 uIU/mL [facility] Blood Venous blood specimen / Unknown 12/27/2024 8:39 AM EDT 12/27/2024 2:14 PM EDT [facility] LAB BLOOD ORDERABLES Supriya l Result Performing Organization Address [facility] Co de Phone Number [facility] [address] [place] [phone] * Hepatitis C Viral RNA, Quantitative, Real-Time PCR (12/27/2024 8:39 AM EDT) [facility] Hepatitis C Viral Load <15 NOT DETECTED NOT DETECTED IU/mL [facility] HCV Log PCR <1.18 NOT DETECTED NOT DETECTED Log IU/mL [facility] Comment:For additional infor naty, please refer tohttp://education.Nuevora/faq/MWL34f8(This link is being provided for informational/educational purposes only.)THIS TEST WAS PERFORMED AT:[employer] [place] [phone] RUSSO MD 12/27/2024 8:39 AM EDT 12/30/2024 10:42 AM EDT [facility] LAB BLOOD ORDERABLES Supriya l Result Performing Organization Address [facility] de Phone Number [facility] [address] [place] [phone] * Albumin, Random Urine W/Creatinine (12/27/2024 8:39 AM EDT) [facility] Creatinine, Urine 238.47 mg/dL [facility] Microalbumin Urine 27.0 mg/L [facility] Microalbum Creatinine Ratio Ur 11.3 <30 ug/mg cr [facility] Comment:Albumin/Creatinine R atio Reference Ranges: Normal: < 30 ug/mg creatinine Microalbuminuria: 30 - 300 ug/mg creatinineClinical Albuminuria: > 300 ug/mg creatinine Urine (Urine, Random) 12/27/2024 8:39 AM EDT 12/27/2024 2:13 PM EDT Clarke Silveira [employer] TE[employer] LAB URINE ORDERABLES Supriya l Result [facility] [address] [place] [phone] [phone] * (ABNORMAL) CBC auto differential (12/27/2024 8:39 AM EDT) White Blood Count 8.5 4.8 - 10.8 X10*3/uL [facility] Red Blood Count 5.03 4.60 - 5.80 X10*6/uL [facility] Hemoglobin 15.1 14.0 - 18.0 g/dl [facility] Hematocrit 44.8 42.0 - 52.0 % [facility] Mean Corpuscular Volume 89.1 80.0 - 98.0 fL [facility] Mean Corpuscular Hemoglobin 30.0 27.0 - 33.0 pg [facility] Mean Corpuscular HGB Conc 33.7 31.0 - 36.0 g/dl [facility] Red Cell Distribution Width 13.6 11.0 - 16.0 % [facility] Platelet Count 229 160 - 400 X10*3/uL [facility] Mean Platelet Volume 12.5(H) 9.4 - 12.4 fL [facility] Neutrophils Percent Auto 58.6 45 - 73 % [facility] Imm Gran Pct Auto 0.2 0.0 - 0.4 % [facility] Lymphocytes Percent Auto 27.8 20 - 40 % [facility] Monocytes Percent Auto 11.3(H) 2 - 11 % [facility] Eosinophils Percent Auto 1.6 0 - 4 % [facility] Basophils Percent Auto 0.5 0 - 2 % [facility] NRBC Pct Auto 0.0 0.0 - 0.2 /100WBC [facility] Neutrophils Absolute Auto 5.0 2.0 - 8.3 x10*3/uL [facility] Imm Gran Abs Auto 0.02 0.00 - 0.03 X10*3/uL [facility] Lymphocytes Absolute Auto 2.4 1.2 - 4.9 X10*3/uL [facility] Monocytes Absolute Auto 1.0 0.1 - 1.2 X10*3/uL [facility] Eosinophils Absolute Auto 0.1 0.0 - 0.4 X10*3/uL [facility] Basophils Absolute Auto 0.0 0.0 - 0.2 X10*3/uL [facility] NRBC Abs Auto 0.000 0.0 - 0.012 X10*3/uL [facility] Blood Venous blood specimen / Unknown 12/27/2024 8:39 AM EDT 12/27/2024 2:10 PM EDT [facility] LAB BLOOD ORDERABLES Supriya l Result Performing Organization Address City/[facility]/ZIP Co de Phone Number [facility] [address] [place] [phone] * (ABNORMAL) Hepatitis C Antibody with Reflex to HCV, RNA, Quantitative, Real- Time PCR (12/27/2024 8:39 AM EDT) Hepatitis C Antibody Reactive( A) Nonreactive [facility] Comment:Presumptive evidence of antibodies to HCV. Blood Venous blood specimen / Unknown 12/27/2024 8:39 AM EDT 12/27/2024 2:14 PM EDT [facility] LAB BLOOD ORDERABLES Supriya l Result Performing Organization Address City/[facility]/ZIP Co de Phone Number [facility] [address] [place] [phone] * (ABNORMAL) Lipid Panel, Standard (12/27/2024 8:39 AM EDT) Triglycerides 114 <150 mg/dL [facility] Comment:Desirable Triglyceri de: less than 150 mg/dLBorderline High Triglyceride 150-199 mg/dLHigh Triglyceride: 200-499 mg/dLVery High Triglyceride: greater than or equal to 5OO mg/dL Cholesterol 134 <200 mg/dL [facility] Comment:Desirable Cholestero l: less than 200 mg/dLBorderline High Cholesterol: 200-239 mg/dLHigh Cholesterol: greater than 239 mg/dL LDL Cholesterol Calculated 72 <100 mg/dL [facility] Comment:Desirable LDL: less than 100 mg/dLNear Optimal/Above Optimal LDL: 110- 129 mg/dLBorderline High LDL: 130-159 mg/dLHigh LDL: 160-189 mg/dLVery High LDL: greater than or equal to 190 mg/dL HDL Cholesterol 40(L) >40 mg/dL [facility] Comment:Desirable HDL: great er than 40 mg/dL Note: This HDL assay may give artificially low results in patients with liver disease. Blood Venous blood specimen / Unknown 12/27/2024 8:39 AM EDT 12/27/2024 2:14 PM EDT [facility] LAB BLOOD ORDERABLES Supriya l Result [facility] [address] [place] [phone] * (ABNORMAL) Comprehensive Metabolic Panel (12/27/2024 8:39 AM EDT) Sodium 140 135 - 145 mmol/L [facility] Potassium 4.5 3.3 - 5.1 mmol/L [facility] Chloride 105 96 - 108 mmol/L [facility] Carbon Dioxide 30(H) 22 - 29 mmol/L [facility] Anion Gap 10(L) 12 - 20 [facility] Urea Nitrogen (BUN) 16 9 - 16 mg/dL [facility] Creatinine, Serum 1.22 0.5 - 1.4 mg/dL [facility] Estimated Glomerular Filt Rate 59 [facility] Comment:Chronic Kidney Disea se: Estimated GFR < 60 mL/min/1.15y4Thkrhk Kidney Disease: Estimated GFR < 15 mL/min/1.73m2 Glucose 124(H) 60 - 115 mg/dL [facility] Calcium 10.0 8.4 - 10.2 mg/dL [facility] Bilirubin, Total 1.0 0.0 - 1.0 mg/dL [facility] Aspartate Amino Transferase 29 5 - 37 U/L [facility] Alanine Aminotransferase 31 0 - 40 U/L [facility] Total Protein 7.7 6.5 - 8.0 g/dL [facility] Albumin Level 4.7 3.5 - 5.0 g/dL [facility] Alkaline Phosphatase 89 39 - 117 U/L [facility] Blood Venous blood specimen / Unknown 12/27/2024 8:39 AM EDT 12/27/2024 2:14 PM EDT [facility] [employer] LAB BLOOD ORDERABLES Supriya l Result Performing Organization Address City/State/[facility] Co de Phone Number [facility] [address] [place] [phone] * POCT glucose manually resulted (12/25/2024 3:00 PM EDT) Glucose Blood, POC 151 60 - 200 mg/dL [employer] Lot # Comment:[id number] Lot# Expiration Date Comment:03/15/2025 Blood Capillary blood specimen / Unknown 12/25/2024 3:00 PM EDT [facility] POINT OF CARE TEST ENTER/ EDIT ORDERABLES Final Result * (ABNORMAL) POCT A1c (12/25/2024 2:59 PM EDT) Hemoglobin A1C 6.7(A) 4.0 - 5.7 % [employer] Lot # Comment:[id number] Lot# Expiration Date Comment:07/01/2026 Blood 12/25/2024 2:59 PM EDT Clarke Silveira CNP POINT OF CARE TEST ENTER/ EDIT ORDERABLES Final Result from Last 3 Months Insurance * Guarantor: Anastacio Quiles Account Type Relation to Patient Date of Phone Billing Address Personal/Family Self 1955 [address] [place] [address] [facility] MEDICARE ADVANTAGE Care Teams Web Sizer Relationship Specialty Start Date End Date Clarke Silveira CNP [address] [place] [address] PCP - General Family Medicine 12/25/24
--- OUTSIDE RECORDS SUMMARY | 2025-01-06 13:14 | XMS_ITS | Encounter Summary ---
Author Organization [employer] Address [address] [facility] [address] [place] [address] Care Team Providers Care Filler Blender Name Role Phone Clarke Silveira CNP Primary Care Provider [phone] Encounter Details Date Type Department Care Team ([facility] st Contact Info) Description 12/27/2024 Orders Only [facility] MED & PEDS [address] [place], [place] [phone] Clarke Silveira CNP [address] [place] [address] Social History Tobacco Use Types Packs/Day Years [...] PM EDT documented as of this encounter Plan of Treatment Upcoming Encounters Date Type Department Care Team (Late st Contact Info) Description 01/08/2025 2:00 PM EDT Clinical Support [facility] MED & P[facility]S [address] [place] [phone] documented as of this encounter Procedures Procedure Name Priority Date/Time Associated Diagnosis Comments HEPATITIS C VIRAL RNA, QUANTITATIVE, REAL-TIME PCR Routine 12/27/2024 8:39 AM EDT documented in this encounter Results * Hepatitis C Viral RNA, Quantitative, Real-Time PCR (12/27/2024 8:39 AM EDT) Hepatitis C Viral Load <15 NOT DETECTED NOT DETECTED IU/mL [facility] HCV Log PCR <1.18 NOT DETECTED NOT DETECTED Log IU/mL [facility] Comment:For additional infor mation, please refer tohttp://education.Funky Moves/faq/VJU29j5(This link is being provided for informational/educational purposes only.)THIS TEST WAS PERFORMED AT:[employer] [place] [phone] RUSSO MD 12/27/2024 8:39 AM EDT 12/30/2024 10:42 AM EDT [facility] LAB BLOOD ORDERABLES Supriya l Result [facility] [address] [place] [phone] [phone] documented in this encounter Visit Diagnoses Not on filedocumented in this encounter Additional Health Concerns Assessment Noted Time PHQ-9 Depression Total Score: 9 12/26/19 25 2:58 PM EDT documented as of this encounter Care Teams Filler Blender Relationship Specialty Start Date End Date Clarke Silveira CNP [address] [place] [phone] PCP - General Family Medicine 12/25/24 documented as of this encounter
--- OUTSIDE RECORDS SUMMARY | 2025-01-06 13:14 | XMS_ITS | Encounter Summary ---
Author Organization [employer] Address [address] [facility] 7t [place] [address] Care Team Providers Care Retort Cooler Name Role Phone Clarke Silveria CNP Primary Care Provider [phone] Reason for Visit * Reason Onset Date Comments FYI 12/31/2024 Encounter Details Date Type Department Care Team ([facility] st Contact Info) Description 12/31/2024 Telephone [facility] [address] [place] [address] Clarke Silveira CNP [address] [place] [address] FYI Social History Tobacco Use Types Packs/Day Years [...] encounter Miscellaneous Notes * Telephone Encounter - Duarte Quick - 12/31/2024 1:29 PM EDT Tc from [facility] with [facility] reporting that they cannot take pt robledo to not excepting his insurance. Pt will have to be placed for another facility. Any questions contact pt at [phone] documented in this encounter Plan of Treatment Upcoming Encounters Date Type Department Care Team (Late st Contact Info) Description 01/08/2025 2:00 PM EDT Clinical Support [facility] MED & PEDS [address] [place] [address] documented as of this encounter Visit Diagnoses Not on filedocumented in this encounter Additional Health Concerns Assessment Noted Time PHQ-9 Depression Total Score: 9 12/26/19 2:58 PM EDT documented as of this encounter Care Teams Retort Cooler Relationship Specialty Start Date End Date Clarke Silveira CNP [address] [place] [address] PCP - General Family Medicine 12/25/24 documented as of this encounter
== END 2025-01-06 13:12 | disposition home or self-care (01) ==
LOC: HO.US 13:11
DX: R68.89 Other general symptoms and signs (principal)
CPT/HCPCS: 76536

== ENCOUNTER → 2025-01-06 13:12 | Outpatient (BNV) | payer MEDICARE, SELFPAY | PROVIDERS: Visit Provider Radiology Diagnostic Radiology | DX: R09.A2 Foreign body sensation, throat (principal) | CPT/HCPCS: 76536 ==